=== PATIENT | female | born 1940 | race Two or more races ===

== ENCOUNTER 2025-05-14 18:55 | Emergency (ER) | payer OTHER ==
[~2025-05-14] VITALS: Ht 170.2 cm; Wt 50.0 kg
--- NOTE | 2025-05-14 19:45 | ED.PDOC ---
History of Present Illness HPI Comments 85 y/o F is BIBA from [facility] for c/c of bilateral lower leg pain, redness, and swelling. Symptoms are commented to extend from the her feet to her knees. Pain is a 2/10 in severity. No reported modifiers. Significant history of CKF, COPD, DM II, and HTN. No endorsed recent ailments, injuries, or further pertinent events or history. Denial of any chest pain, shortness of breath, fever, chills, numbness, tingling, wound discharge, or further associated symptoms. Chief Complaint: Lower Extremity Time Seen by MD: 19:10 Reviewed Notes: Nurses Notes, Psychometric Examiner Notes, Medications, Allergies Allergies: Coded Allergies: Aspirin (Verified Allergy, Unknown, 05/14/25) Penicillins (Verified Allergy, Unknown, 05/14/25) Information Source: Patient, Emergency Med Personnel Mode of Arrival: EMS Severity: Moderate Timing: Hours Duration: Since onset Prehospital treatment: 12 Lead EKG, Accucheck, Commercial Green Building Architect Past Medical History PAST MEDICAL HISTORY: CKF, COPD, DM, HTN Surgical History: Hysterectomy SURVEY DATA TECHNICIAN History: Denies all SURVEY DATA TECHNICIAN Hx Family History Family History: Unknown Social History Smoker: Non-Smoker Alcohol: Denies ETOH Use Drugs: Denies Drug Use Lives In: Assisted Care, Long Term All Other Systems: Reviewed and Negative (Comprehensive systems review obtained and negative except for what is stated in the HPI.) Physical Exam General Appearance: Moderate Distress HEENT: Normal ENT Inspection, Pharynx Normal, TMs Normal Neck: Full Range of Motion, Non-Tender, Normal, Normal Inspection Respiratory: Chest Non-Tender, Lungs Clear, No Accessory Muscle Use, No Respiratory Distress, Normal Breath Sounds Cardiovascular: No Edema, No JVD, No Murmur, No Gallop, Normal Peripheral Pulses, Regular Rate/Rhythm Breast Exam: Deferred Gastrointestinal: No Organomegaly, Non Tender, No Pulsatile Mass, Normal Bowel Sounds, Soft Genitalia: Deferred Pelvic: Deferred Rectal: Deferred Extremities: No calf tenderness, Normal capillary refill, Normal inspection, Normal range of motion, Non-tender, No pedal edema Musculoskeletal : Apperance: Normal Neurologic: Alert, brick washer II-XII nml as Tested, No Motor Deficits, Normal Affect, Normal Mood, No Sensory Deficits Cerebellar Function: Normal Reflexes: Normal Skin: Dry, Normal Color, Warm Peripheral Pulses: 3+ Radial (R), 3+ Radial (L) Lymphatic: No Adenopathy Was a procedure done? Was a procedure done?: No Differential Dx Considerations may include: DVT, cellulitis, neurovascular injury, viral syndrome, fluid retention, among others X-Ray, Labs, Meds, VS Vital Signs Date Time Temp Pulse Resp B/P (MAP) Pulse Ox O2 Delivery O2 Flow Rate FiO2 05/15/25 02:00 78 16 116/32 (60) 95 05/15/25 00:00 76 15 101/42 (61) 93 05/14/25 22:00 73 16 108/30 (56) 99 05/14/25 19:30 Nasal Cannula* 2 28 05/14/25 19:30 98.1 94 18 129/45 (73) 98 98.1 05/14/25 19:20 98.0 90 18 110/90 94 98.0 [place] [id number] Ph: [phone] DIAGNOSTIC IMAGING Diagnostic Imaging Report : [id number] Signed PATIENT: NAKUL ENGEL ACCT: [id number] UNIT: [id number] : 1940 LOC: ER ROOM / BED: / AGE / SEX: 85 / F ADM STATUS: REG ER SERVICE 13 ORDERING PHYSICIAN: HARRY BERKOWITZ MD PROCEDURE(s): BLDVT - BiLat Lower DVT REASON: dvt ORDER NUMBER(s): [id number], ACCESSION NUMBER(s): [id number] Procedure: US BiLat Lower DVT Study Date and Requested Time: 05/14/2025 07:56 PM History: dvt Comparison: None Technique: Multiple high resolution patel-scale images with and without compression obtained of the bilateral lower extremity veins, including the com mon femoral vein, deep femoral vein, proximal mid and distal superficial femoral vein, and popliteal vein. Additional limited images of the greater saphenous vein also obtained. Augmentation performed as indicated. Color and spectral doppler flow images obtained as indicated. Findings: No visible intraluminal venous thrombus. No evidence of incompressibility or abnormal color or spectral Doppler flow visualized in the bilateral lower extremity veins including, the common femoral vein, deep femoral vein, proximal mid and distal superficial femoral vein, and popliteal vein. Greater saphenous vein grossly unremarkable. Soft tissue edema of bilateral popliteal regions. Impression: No sonographic evidence of bilateral lower extremity deep venous thrombosis. ATED BY: RUBY BAL DO DICTATED DATE/TIME: 05/14/252023 SIGNED BY: RUBY BAL DO SIGNED DATE/TIME: 05/14/252023 CC: Patient alert. Came in because of bilateral lower extremity swelling. Vitals stable. Answering questions. No acute process. DVT study reviewed within normal limits. Explained to the patient. Was told to follow up with her primary care physician. Was told to come back if there is any problem. Time of 1ST Reevaluation: 19:40 Reevaluation 1ST: Unchanged Patient Education/Counseling: Diagnosis, Treatment, Other (need for admission ) Family Education/Counseling: No Family Present SEPSIS Sepsis Screen Physician Orders Bilat Lower Dvt (05/14/25 19:14) Vital Signs Date Time Temp Pulse Resp B/P (MAP) Pulse Ox O2 Delivery O2 Flow Rate FiO2 05/15/25 02:00 78 16 116/32 (60) 95 05/15/25 00:00 76 15 101/42 (61) 93 05/14/25 22:00 73 16 108/30 (56) 99 05/14/25 19:30 Nasal Cannula* 2 28 05/14/25 19:30 98.1 94 18 129/45 (73) 98 98.1 05/14/25 19:20 98.0 90 18 110/90 94 98.0 Departure 1 Departure Time of Disposition: 20:24 Impression: Primary Impression: CHF (congestive heart failure) Qualified Codes: I50.43 - Acute on chronic combined systolic (congestive) and diastolic (congestive) heart failure Disposition: 01 HOME / SELF CARE / HOMELESS Condition: Good Discharged With: Self Critical Care Note Critical Care Time?: No Stability Stability form required: No Heart Score Heart Score: Heart Score Response (Comments) Value History N/A 0 EKG N/A 0 Age N/A 0 Risk Factors N/A 0 Troponin N/A 0 Total 0 I personally scribed for HARRY BERKOWITZ MD ([email or web address]) on 05/14/25 at 19:45. Electronically submitted by Leland Grajeda ([email or web address]). I personally scribed for HARRY BERKOWITZ MD ([email or web address]) on 05/14/25 at 22:54. Electronically submitted by Leland Grajeda ([email or web address]). I personally scribed for HARRY BERKOWITZ MD ([email or web address]) on 05/15/25 at 02:13. Electronically submitted by Leland Grajeda ([email or web address]). HARRY BERKOWITZ MD May 14, 2025 19:45
--- NOTE | 2025-05-14 20:27 | DVH ---
Procedure: US BiLat Lower DVT Study Date and Requested Time: 05/14/2025 07:56 PM History: dvt Comparison: None Technique: Multiple high resolution patel-scale images with and without compression obtained of the bi lateral lower extremity veins, including the common femoral vein, deep femoral vein, proximal mid and distal superficial femoral vein, and popliteal vein. Additional limited images of the greater saphen ous vein also obtained. Augmentation performed as indicated. Color and spectral doppler flow images o btained as indicated. Findings: No visible intraluminal venous thrombus. No evidence of incompressibility or abnormal color or spectr al Doppler flow visualized in the bilateral lower extremity veins including, the common femoral vein, deep femoral vein, proximal mid and distal superficial femoral vein, and popliteal vein. Greater sap henous vein grossly unremarkable. Soft tissue edema of bilateral popliteal regions. Impression: No sonographic evidence of bilateral lower extremity deep venous thrombosis.
[2025-05-15] MEDS: ACETAMINOPHEN 325 MG TAB PO ONE (04:24)
[2025-05-15 07:12] VITALS: BP 137/58; PULSE 75; RESP 17; TEMP 97.8; O2SAT 95
== END 2025-05-15 12:47 | disposition home or self-care (01) ==
LOC: EDBD 18:55 → ER 18:55
DX: I11.0 Hypertensive heart disease with heart failure (principal); I50.43 Acute on chronic combined systolic (congestive) and diastolic (congestive) heart failure; E11.9 Type 2 diabetes mellitus without complications; J44.9 Chronic obstructive pulmonary disease, unspecified; Z90.710 Acquired absence of both cervix and uterus; Z88.6 Allergy status to analgesic agent; Z86.718 Personal history of other venous thrombosis and embolism; Z88.0 Allergy status to penicillin
CPT/HCPCS: 82947; 82962; 93970

== ENCOUNTER 2025-07-02 11:29 | Inpatient (IN) | payer OTHER ==
[~2025-07-02] VITALS: Ht 152.4 cm; Wt 70.2 kg
[2025-07-02] MEDS: D5W 5% 1,000 ML IV SCH
[2025-07-02 12:30] VITALS: PULSE 78; RESP 15; O2SAT 96
--- NOTE | 2025-07-02 12:39 | ED.PDOC ---
GI ASSESSMENT HPI Comments 85 y.o female with PMHx of liver cirrhosis, presents to the ED via EMS for a chief complaint of abdominal distention and upper abdominal pain that started x 1-2 weeks ago. EMS reports patient is coming from [facility], states he transferred patient to [facility], [place] yesterday due to ascities and was suppose to get a paracentesis done, however hospital just discharged her. Patient's PCP wanted patient to be transferred to this facility to undergo the procedure. She denies any nausea, vomiting, diarrhea, fever, chills. Chief Complaint: Abdominal Pain Time Seen by MD: 11:55 Reviewed Notes: Nurses Notes, Timber Skidder Notes, Medications, Allergies Allergies: Coded Allergies: Aspirin (Verified Allergy, Unknown, 05/14/25) Penicillins (Verified Allergy, Unknown, 05/14/25) Information Source: Patient, Emergency Med Personnel Mode of Arrival: EMS Timing: Weeks Duration: Since onset Quality: Aching Vomitus: None Stool: Normal Severity: Moderate Recent: None Recent Hx of: None Pain Location: Epigastric Modifying Factors: Nothing Associated sign and symptoms: Abdominal Pain Past Medical History PAST MEDICAL HISTORY: CKF, COPD, DM, HTN, Liver Surgical History: Hysterectomy 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 MASTER 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 History: Denies all CERTIFIED MASTER 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 Hx Family History Family History: Unknown Social History Smoker: Non-Smoker Alcohol: Denies ETOH Use Drugs: Denies Drug Use Lives In: Assisted Care, Intermediate Constitutional: denies: chills, diaphoresis, fatigue, fever, malaise, sweats, weakness, others EENTM: denies: blurred vision, double vision, ear bleeding, ear discharge, ear drainage, ear pain, ear ringing, eye pain, eye redness, hearing loss, mouth pain, mouth swelling, nasal discharge, nose bleeding, nose congestion, nose pain, photophobia, tearing, throat pain, throat swelling, voice changes, others Respiratory: denies: cough, hemoptysis, orthopnea, SOB at rest, shortness of breath, SOB with excertion, stridor, wheezing, others Cardiovascular: denies: chest pain, dizzy spells, diaphoresis, Dyspnea on exertion, edema, irregular heart beat, left arm pain, lightheadedness, palpitations, PND, syncope, others Gastrointestinal: reports: abdomen distended, abdominal pain; denies: blood streaked bowels, constipated, diarrhea, dysphagia, difficulty swallowing, hematemesis, melena, nausea, poor appetite, poor fluid intake, rectal bleeding, rectal pain, vomiting, others Genitourinary: denies: abnormal vagina bleeding, burning, dyspareunia, dysuria, flank pain, frequency, hematuria, incontinence, pain, , vagina dis charge, urgency, others Neurological: denies: dizziness, fainting, headache, left sided numbness, left sided weakness, numbness, paresthesia, pre-existing deficit, right sided numbness, right sided weakness, seizure, speech problems, tingling, tremors, weakness, others Musculoskeletal: denies: back pain, gout, joint pain, joint swelling, muscle pain, muscle stiffness, neck pain, others Integumetry: denies: bruises, change in color, change in hair/nails, dryness, laceration, lesions, lumps, rash, wounds, others Endocrine: denies: excessive hunger, excessive sweating, excessive thirst, excessive urination, flushing, intolerance to cold, intolerance to heat, unexplained weight gain, unexplained weight loss, others Psychiatric: denies: anxiety, bipolar disorder, depression, hopeless, panic disorder, schizophrenia, sleepless, suicidal, others All Other Systems: Reviewed and Negative Physical Exam General Appearance: No Apparent Distress, Normal HEENT: Normal ENT Inspection, Pharynx Normal, TMs Normal Neck: Full Range of Motion, Non-Tender, Normal, Normal Inspection Respiratory: Chest Non-Tender, Lungs Clear, No Accessory Muscle Use, No Respiratory Distress, Normal Breath Sounds Cardiovascular: No Edema, No JVD, No Murmur, No Gallop, Normal Peripheral Pulses, Regular Rate/Rhythm Breast Exam: Deferred Gastrointestinal: Diffuse, Distended, No Organomegaly, Non Tender, No Pulsatile Mass Genitalia: Deferred Pelvic: Deferred Rectal: Deferred Extremities: No calf tenderness, Normal capillary refill, Normal inspection, No rmal range of motion, Non-tender, No pedal edema Musculoskeletal : Apperance: Normal Neurologic: Alert, jira administrator II-XII nml as Tested, No Motor Deficits, Normal Affect, Normal Mood, No Sensory Deficits Cerebellar Function: Normal Reflexes: Normal Skin: Dry, Normal Color, Warm Lymphatic: No Adenopathy Was a procedure done? Was a procedure done?: No GI differential Dx Differential Diagnosis: Bowel Obstruction, Inflammatory BD, Pancreatitis X-Ray, Labs, Meds, VS Vital Signs Date Time Temp Pulse Resp B/P (MAP) Pulse Ox O2 Delivery O2 Flow Rate FiO2 07/02/25 18:15 60 9 103/67 (79) 97 07/02/25 18:00 73 12 114/50 (71) 98 07/02/25 18:00 114/50 07/02/25 17:45 55 10 120/43 (68) 98 07/02/25 17:30 60 10 115/45 (68) 96 07/02/25 17:20 132/52 07/02/25 17:15 60 10 116/41 (66) 96 07/02/25 17:14 125/50 07/02/25 17:09 125/50 07/02/25 16:50 61 10 121/43 (69) 97 07/02/25 16:23 106/38 07/02/25 16:15 66 9 106/38 (60) 97 07/02/25 16:00 98.0 66 9 101/35 (57) 97 98.0 07/02/25 15:40 71 10 115/45 (68) 96 07/02/25 14:30 64 12 90/33 (52) 99 07/02/25 14:18 68 12 96/34 07/02/25 12:47 78 18 121/48 07/02/25 12:30 78 15 96 Nasal Cannula* 2 28 07/02/25 12:30 98.7 78 30 121/48 (72) 97 98.7 07/02/25 11:31 98.7 78 19 108/58 97 98.7 Lab Test 07/02/25 16:55 07/02/25 16:32 07/02/25 13:04 Range/Units Lactic Acid Level 1.4 0.4-2.0 mmol/L Urine Color Yellow Yellow Urine Clarity Clear Clear Urine pH 5.5 5.0-9.0 Urine Specific Ponce 1.019 1.001-1.035 Urine Protein Trace H Negative Urine Ketones Negative Negative Urine Blood Negative Negative /uL Urine Nitrite Negative Negative Urine Bilirubin Negative Negative Urine Urobilinogen Normal Negative mg/dL Urine Leukocyte Esterase 3+ Negative /uL Urine RBC 4 0 - 4 /hpf Urine Microscopic WBC 51 H 0-5 /HPF Urine Squamous Epithelial Cells Few <5 /hpf Urine Bacteria None seen None Seen /hpf Urine Glucose Normal Normal mg/dL White Blood Count 7.3 4.4-10.8 10^3/uL Red Blood Count 3.96 L 4.0-5.20 10^6/uL Hemoglobin 11.4 L 12.2-16.2 g/dL Hematocrit 34.9 L 36.0-46.0 % Mean Corpuscular Volume 88.1 80.0-100.0 fL Mean Corpuscular Hemoglobin 28.8 28.0-32.0 pg Mean Corpuscular Hemoglobin Concent 32.7 32.0-36.0 g/dL Red Cell Distribution Width 19.5 H 11.8-14.3 % Platelet Count 138 L 140-450 10^3/uL Mean Platelet Volume 8.5 6.9-10.8 fL Neutrophils (%) (Auto) 71.6 37.0-80.0 % Lymphocytes (%) (Auto) 12.8 10.0-50.0 % Monocytes (%) (Auto) 11.3 0.0-12.0 % Eosinophils (%) (Auto) 3.9 0.0-7.0 % Basophils (%) (Auto) 0.4 0.0-2.0 % Neutrophils # (Auto) 5.2 1.6-8.6 10 ^3/uL Lymphocytes # (Auto) 0.9 0.4-5.4 10 ^3/uL Monocytes # (Auto) 0.8 0-1.3 10 ^3/uL Eosinophils # (Auto) 0.3 0-0.8 10 ^3/uL Basophils # (Auto) 0 0-0.2 10 ^3/uL Nucleated Red Blood Cells 0.1 % Sodium Level 145 136-145 mmol/L Potassium Level 4.2 3.5-5.1 mmol/L Chloride Level 112 H 98-107 mmol/L Carbon Dioxide Level 24 20-31 mmol/L Anion Gap 9 5-15 Blood Urea Nitrogen 22 9-23 mg/dL Creatinine 1.09 H 0.550-1.02 mg/dL Glomerular Filtration Rate Calc 50 >90 mL/min BUN/Creatinine Ratio 20.2 H 10.0-20.0 Serum Glucose 93 74-106 mg/dL Calcium Level 7.8 L 8.7-10.4 mg/dL Total Bilirubin 1.1 H 0.2-1.0 mg/dL Aspartate Amino Transferase (AST) 56 H 13-40 U/L Alanine Aminotransferase (ALT) 32 7-40 U/L Alkaline Phosphatase 348 H 46-116 U/L Total Protein 6.0 5.7-8.2 g/dL Albumin 3.0 L 3.2-4.8 g/dL Lipase 40 12-53 U/L Current Medications Medications (Trade) Dose Ordered Sig/Janusz Route Start Time Stop Time Status Last Admin Morphine Sulfate 4 mg ONCE ONCE IV 07/02/25 12:15 07/02/25 12:16 DC 07/02/25 12:47 Ondansetron HCl (Zofran) 4 mg ONCE ONCE IV 07/02/25 12:15 07/02/25 12:16 DC 07/02/25 12:47 Sodium Chloride 1,000 ml @ 1,000 mls/hr Q1H ONCE IV 07/02/25 14:15 07/02/25 15:03 DC 07/02/25 14:18 Sodium Chloride 1,000 ml @ 150 mls/hr Q6H40M IV 07/02/25 16:15 07/02/25 16:24 Norepinephrine Bitartrate 250 ml @ 3.75 mls/hr Q24H IV 07/02/25 16:15 07/02/25 18:41 DC 07/02/25 16:23 Vancomycin HCl 250 ml @ 250 mls/hr ONCE ONCE IV 07/02/25 16:15 07/02/25 17:14 DC 07/02/25 17:42 Ceftriaxone Sodium 50 ml @ 100 mls/hr ONCE ONCE IV 07/02/25 16:15 07/02/25 16:44 DC 07/02/25 17:26 Sodium Chloride 500 ml @ 500 mls/hr Q1H ONCE IV 07/02/25 18:45 07/02/25 19:44 07/02/25 19:05 Time of 1ST Reevaluation: 12:39 Reevaluation 1ST: Unchanged Patient Education/Counseling: Diagnosis, Treatment, Prognosis Family Education/Counseling: No Family Present SEPSIS Sepsis Screen Date sepsis recognized/suspect: Jul 02, 2025 Time Sepsis recognized/suspect: 1121 Recent Procedure: No On Antibiotic Therapy: No Respiratory Rate >20: No Heart Rate >90: No Temp<36 C (96.8 F) or >38.3 C: No SBP <90 or MAP <65 mmHG: No New Acute Mental Status Change: No Is the patient on CPAP, BIPAP,: No Physician Orders Ct Ab Pel With Iv Con Only (07/02/25 12:05) Sodium Chloride 0.9% (07/02/25 16:15) Communication Order (07/02/25 16:07) Blood Culture (07/02/25 16:14) Insert/Manage Urinary Catheter QSHIFT (07/02/25 16:27) Urine Bacterial Culture (07/02/25 16:38) Sodium Chloride 0.9% (07/02/25 18:45) Norepinephrine 8 Mg/250ml Kit (Levophed) (07/02/25 19:15) Vital Signs Date Time Temp Pulse Resp B/P (MAP) Pulse Ox O2 Delivery O2 Flow Rate FiO2 07/02/25 18:15 60 9 103/67 (79) 97 07/02/25 18:00 73 12 114/50 (71) 98 07/02/25 18:00 114/50 07/02/25 17:45 55 10 120/43 (68) 98 07/02/25 17:30 60 10 115/45 (68) 96 07/02/25 17:20 132/52 07/02/25 17:15 60 10 116/41 (66) 96 07/02/25 17:14 125/50 07/02/25 17:09 125/50 07/02/25 16:50 61 10 121/43 (69) 97 07/02/25 16:23 106/38 07/02/25 16:15 66 9 106/38 (60) 97 07/02/25 16:00 98.0 66 9 101/35 (57) 97 98.0 07/02/25 15:40 71 10 115/45 (68) 96 07/02/25 14:30 64 12 90/33 (52) 99 07/02/25 14:18 68 12 96/34 07/02/25 12:47 78 18 121/48 07/02/25 12:30 78 15 96 Nasal Cannula* 2 28 07/02/25 12:30 98.7 78 30 121/48 (72) 97 98.7 07/02/25 11:31 98.7 78 19 108/58 97 98.7 Laboratory Tests Test 07/02/25 13:04 11/22/25 16:55 White Blood Count 7.3 10^3/uL (4.4-10.8) Lactic Acid Level 1.4 mmol/L (0.4-2.0) Medications Medications Dose Ordered Sig/Janusz Route Start Time Stop Time Status Last Admin Dose Admin Ceftriaxone Sodium 50 ml @ 100 mls/hr ONCE ONCE IV 07/02/25 16:15 07/02/25 16:44 DC 07/02/25 17:26 Morphine Sulfate 4 mg ONCE ONCE IV 07/02/25 12:15 07/02/25 12:16 DC 07/02/25 12:47 Norepinephrine Bitartrate 250 ml @ 3.75 mls/hr Q24H IV 07/02/25 16:15 07/02/25 18:41 DC 07/02/25 16:23 Ondansetron HCl 4 mg ONCE ONCE IV 07/02/25 12:15 07/02/25 12:16 DC 07/02/25 12:47 Sodium Chloride 500 ml @ 500 mls/hr Q1H ONCE IV 07/02/25 18:45 07/02/25 19:44 07/02/25 19:05 Sodium Chloride 1,000 ml @ 150 mls/hr Q6H40M IV 07/02/25 16:15 07/02/25 16:24 Sodium Chloride 1,000 ml @ 1,000 mls/hr Q1H ONCE IV 07/02/25 14:15 07/02/25 15:03 DC 07/02/25 14:18 Vancomycin HCl 250 ml @ 250 mls/hr ONCE ONCE IV 07/02/25 16:15 07/02/25 17:14 DC 07/02/25 17:42 Departure 1 Departure Time of Disposition: 19:30 (Patient with concern for sepsis. We will not give patient the full fluid bolus as patient is clinically well here volume overloaded.Patient requiring pressors.Patient presented with abdominal pain that was concerning for possible appendicits, gastritis, cholecystitis, colitis, gastroenteritis, sbo, or orther possible surgical emergency. Data: 1. I ordered and reviewed the result of at least 3 labs including a CBC, BMP, and Urinalysis. 2. I independently interpreted the following tests: CT Abdomen and Pelvis is concerning for worsening ascites likely worsening liver cancer .Risk:This patient has a high risk of morbidity due to further diagnostic testing or treatment and may suffer from an acute abdominal process disorder. Workup reveals intractable abdominal pain and concern for sepsis with a worsening liver problems and patient should be admitted for further workup. and possible expert consultation. ) Impression: Primary Impression: Sepsis Additional Impressions: Intractable abdominal pain Liver failure Disposition: ADMITTED INPATIENT Admit to: ICU Condition: Critical Critical Care Note Critical Care Time?: Yes Critical care comment: Intractable abdominal pain and sepsis requiring pressors Authorized and Performed by: Barbara Turk MD Total critical care time: Approximately 128 minutes Due to a high probability of clinically significant, life threatening deterioration, the patient required my highest level of preparedness to intervene emergently and I personally spent this critical care time directly and personally managing the patient. This critical care time included obtaining a history; examining the patient; pulse oximetry; ordering and review of studies; arranging urgent treatment with development of a management plan; evaluation of patient's response to treatment; frequent reassessment; and, discussions with other providers. This critical care time was performed to assess and manage the high probability of imminent, life-threatening deterioration that could result in multi-organ failure. It was exclusive of separately billable procedures and treating other patients and teaching time. Please see my other sections and the rest of the note for further information on patient assessment and treatment. Stability Stability form required: No I personally scribed for BARBARA TURK MD ([email or web address]) on 07/02/25 at 12:39. Electronically submitted by Tarsha Joaquin ([facility]). BARBARA TURK MD Jul 02, 2025 12:39
[2025-07-02] MEDS: MORPHINE SULFATE 4 MG/ML SYR/VIAL ONE (12:43)
[2025-07-02] MEDS: ONDANSETRON HCL 4 MG/2 ML VIAL ONE (12:44)
[2025-07-02] MEDS: MORPHINE SULFATE 4 MG/ML SYR/VIAL IV ONE (12:47)
[2025-07-02] MEDS: ONDANSETRON HCL 4 MG/2 ML VIAL IV ONE (12:47)
[2025-07-02 13:21] LABS: Hematocrit 34.9 % (36.0-46.0); Hemoglobin 11.4 g/dL (12.2-16.2); Mean Corpuscular Hemoglobin 28.8 pg (28.0-32.0); Mean Corpuscular Volume 88.1 fL (80.0-100.0); Nucleated Red Blood Cells % 0.1 %
[2025-07-02 13:45] LABS: Alanine Aminotransferase 32 U/L (7-40); BUN/Creatinine Ratio 20.2 (10.0-20.0); Bilirubin, Total 1.1 mg/dL (0.2-1.0); Blood Urea Nitrogen 22 mg/dL (9-23); Carbon Dioxide 24 mmol/L (20-31); Glucose 93 mg/dL (74-106); Lipase 40 U/L (12-53); Total Protein 6.0 g/dL (5.7-8.2)
[2025-07-02] MEDS: SODIUM CHLORIDE 0.9% 1,000 ML IV ONE ×2 (14:18→15:15)
[2025-07-02 14:37] LABS: Potassium 4.2 mmol/L (3.5-5.1); Sodium 145 mmol/L (136-145)
[2025-07-02 14:41] LABS: Albumin 3.0 g/dL (3.2-4.8); Alkaline Phosphatase 348 U/L (46-116); Calcium 7.8 mg/dL (8.7-10.4)
[2025-07-02 14:42] LABS: Anion Gap 9 (5-15); Chloride 112 mmol/L (98-107)
[2025-07-02] MEDS: IOHEXOL 300 MG/ML 100ML BOTTLE IJ ONE (14:54)
--- NOTE | 2025-07-02 16:04 | DVH ---
EXAM: CT CT AB PEL WITH IV CON ONLY HISTORY: abdominal pain TECHNIQUE: Volumetric multidetector CT images of the abdomen and pelvis were obtained after the administration of intravenous contrast. All CT scans at this facility use dose modulation, iterative reconstruction, and/or weight based dosing when appropriate to reduce radiation dose to as low as reasonably achievable. COMPARISON: None FINDINGS: [LOWER CHEST]: Small right and trace left pleural effusions. Atelectasis in bilateral lung bases. Coronary artery calcifications. [LIVER]: Significant cirrhotic morphology of the liver with small caliber and nodular contour. Oval-shaped lesion in the right hepatic lobe with homogeneous enhancement measuring 8-9 mm. Imaging finding is indeterminate. Consider further evaluation with MRI of the liver with and without contrast correlation with tumor markers [GALLBLADDER AND BILIARY TREE]: No cholelithiasis. [SPLEEN]: Splenomegaly. [PANCREAS]: Unremarkable. [ADRENAL GLANDS]: Unremarkable [KIDNEYS]: Mild right hydronephrosis and moderate right pelviectasis. Moderate right hydroureter. No left hydronephrosis. Benign left inferior kidney cysts . Bilateral renal cortical thinning [BLADDER]: Unremarkable for the degree distention. [REPRODUCTIVE ORGANS]: Unremarkable. [BOWEL/MESENTERY]: Stomach is decompressed. Prominent stool burden within the high to low rectum. [ASCITES]: Medium volume ascites [LYMPHADENOPATHY]: No pathologically enlarged lymph nodes by CT size criteria [VASCULATURE]: No aneurysmal dilatation. [ABDOMINAL WALL]: [id number] anasarca [MUSCULOSKELETAL]: No acute fracture or aggressive focal osseous lesion. IMPRESSION: 1. Cirrhotic morphology of the liver with medium volume ascites. 2. Splenomegaly. 3. Indeterminate oval-shaped lesion in the right hepatic lobe with homogeneous enhancement measuring 8-9 mm. Imaging finding is indeterminate. Consider further evaluation with MRI of the liver with and without contrast correlation with tumor markers. 4. Mild right hydronephrosis and moderate right pelviectasis. 5. Moderate right hydroureter. 6. Small right and trace left pleural effusions.
[2025-07-02] MEDS: NOREPINEPHRINE 8 MG/250ML KIT 250 ML IV ONE (16:16)
[2025-07-02] MEDS: NOREPINEPHRINE 8 MG/250ML KIT 250 ML IV SCH ×2 (16:23→21:55)
[2025-07-02] MEDS: SODIUM CHLORIDE 0.9% 1,000 ML IV SCH ×2 (16:24→20:33)
[2025-07-02] MEDS: VANCOMYCIN 1GM/250ML KIT 250 ML IV ONE ×3 (16:49→17:42)
[2025-07-02 17:19] LABS: Urine Protein, UAD TRACE (Negative)
[2025-07-02 19:00] VITALS: PULSE 64; RESP 10; O2SAT 96
[2025-07-02] MEDS: SODIUM CHLORIDE 0.9% 500 ML IV ONE (19:05)
[2025-07-02] MEDS ORDERED: ONDANSETRON HCL 4 MG/2 ML VIAL IV PRN (20:00)
[2025-07-02] MEDS ORDERED: DOCUSATE SOD 100 MG CAP PO PRN (20:00)
[2025-07-02] MEDS ORDERED: MORPHINE SULFATE INJ 2 MG/ml SYRG IV PRN (20:00)
[2025-07-02] MEDS ORDERED: IBUPROFEN 400 MG TAB PO PRN (20:00)
[2025-07-02] MEDS ORDERED: VANCOMYCIN PER PHARMACY 0 MG IV SCH (20:00)
[2025-07-02] MEDS ORDERED: DEXTROSE (50%) 50ML SYRG IV PRN (20:00)
[2025-07-02] MEDS ORDERED: NITROGLYCERIN 0.4 MG SL TAB SL PRN (20:00)
--- NOTE | 2025-07-02 20:06 | DVHHP2 ---
History of Present Illness Reason for Visit: Hypotension History of Present Illness The patient is a 85-year-old female DNR with past medical history of chronic kidney failure, COPD, diabetes mellitus, liver disease, and hypertension who presented to [facility] ED with complaint of abdominal pain for the past 1-2 weeks. As reported by EMS, patient is residing [facility], was admitted at [facility] yesterday due to ascites and was supposed to get paracentesis done, however hospital just discharged her. Patient's primary care physician wanted patient to be transferred to this facility to undergo the procedure. Patient was seen and evaluated in the ED, laboratory data shows WBC 7.3, hemoglobin 11.4, hematocrit 34.9, platelets 138, sodium 145, potassium 4.2, BUN 22, creatinine 1.09, GFR 50, glucose 93, calcium 7.8, albumin 3.0, AST 56, ALT 32, alkaline phos 348, lactic acid 1.4, total bilirubin 1.1, blood pressure 102/47, heart rate 64, temperature 98.3 F, O2 saturation 95% on oxygen. Abdomen/pelvis CT revealing cirrhotic morphology of th e liver with medium volume ascites; splenomegaly; mild right hydronephrosis and moderate right pelviectasis; moderate right hydroureter. Please see medication orders section in the computer. On my assessment, patient denied chest pain, no headache, dizziness, diaphoresis, currently on oxygen, no diarrhea, nausea, vomiting, fever, no chills. Patient was admitted for further evaluation and medical management. Past Medical History CKF, COPD, DM, HTN, Liver disease Past Surgical History Hysterectomy Family History Reviewed, noncontributory to the management of this case. Past Social History [facility], denies smoking, alcohol or illicit drugs abuse. Review of Systems Constitutional: Yes: Weakness; No: Fever, Chills, Sweats, Malaise, Other Eyes: No: Pain, Vision change, Conjunctivae inflammation, Eyelid inflammation, Other, Redness ENT: No: Ear pain, Ear discharge, Nose pain, Nose discharge, Nose congestion, Mouth pain, Mouth swelling, Throat pain, Throat swelling, Other Respiratory: No: Cough, Dry, Shortness of breath, SOB with excertion, Wheezing, Hemoptysis, Pleuritic Pain, Sputum, Wheezing, Other Cardiovascular: Other (Hypotension); No: Chest Pain, Palpitations, Orthopnea, Paroxysmal Noc. Dyspnea, Edema, Lt Headedness Gastrointestinal: Abdominal Pain, Other (Distended abdomen); No: Nausea, Vomiting, Diarrhea, Constipation, Melena, Hematochezia Genitourinary: No Dysuria, No Frequency, No Incontinence, No Hematuria, No Retention, No Other Musculoskeletal: No: other, neck pain, shoulder pain, arm pain, back pain, hand pain, leg pain, foot pain Skin: No: Rash, Lesions, Jaundice, Bruising, Other Neurological: No: Weakness, Numbness, Incoordination, Change in speech, Confusion, Seizures, Other Allergies: Coded Allergies: Aspirin (Verified Allergy, Unknown, 05/14/25) Penicillins (Verified Allergy, Unknown, 05/14/25) Medications Current Medications Medications Dose Ordered Sig/Janusz Route Start Time Stop Time Status Last Admin Dose Admin Sodium Chloride 1,000 ml @ 150 mls/hr Q6H40M IV 07/02/25 16:15 07/02/25 16:24 150 MLS/HR Norepinephrine Bitartrate 250 ml @ 3.75 mls/hr Q24H IV 07/02/25 19:15 Exam Vital Signs Vital Signs Date Time Temp Pulse Resp B/P (MAP) Pulse Ox O2 Delivery O2 Flow Rate FiO2 07/02/25 19:00 64 10 96 Nasal Cannula* 2 28 07/02/25 19:00 98.3 102/47 (65) 98.3 General Appearance: Alert, Oriented X3, Cooperative, No acute distress HEENT: Atraumatic, PERRLA, EOMI, Mucous membr. moist/pink Respiratory: Normal air movement Cardiovascular: Regular rate, Normal S1, Normal S2, No murmurs Abdominal: Normal bowel sounds, Soft, No hepatospenomegaly, No masses, Other (Reports tenderness) Extremities: No clubbing, No cyanosis, No edema, Normal pulses, No tenderness/swelling Skin: No rashes, No significant lesion Neuro: Normal speech, Normal tone, Sensation intact, Cranial nerves 3-12 NL, Reflexes 2+, Other (Generalized weakness) Psych/Mental Status: Mental status NL, Mood NL Labs/Xrays Labs Test 07/02/25 16:55 07/02/25 16:32 07/02/25 13:04 Range/Units Lactic Acid Level 1.4 0.4-2.0 mmol/L Urine Color Yellow Yellow Urine Clarity Clear Clear Urine pH 5.5 5.0-9.0 Urine Specific [place] 1.019 1.001-1.035 Urine Protein Trace H Negative Urine Ketones Negative Negative Urine Blood Negative Negative /uL Urine Nitrite Negative Negative Urine Bilirubin Negative Negative Urine Urobilinogen Normal Negative mg/dL Urine Leukocyte Esterase 3+ Negative /uL Urine RBC 4 0 - 4 /hpf Urine Microscopic WBC 51 H 0-5 /HPF Urine Squamous Epithelial Cells Few <5 /hpf Urine Bacteria None seen None Seen /hpf Urine Glucose Normal Normal mg/dL White Blood Count 7.3 4.4-10.8 10^3/uL Red Blood Count 3.96 L 4.0-5.20 10^6/uL Hemoglobin 11.4 L 12.2-16.2 g/dL Hematocrit 34.9 L 36.0-46.0 % Mean Corpuscular Volume 88.1 80.0-100.0 fL Mean Corpuscular Hemoglobin 28.8 28.0-32.0 pg Mean Corpuscular Hemoglobin Concent 32.7 32.0-36.0 g/dL Red Cell Distribution Width 19.5 H 11.8-14.3 % Platelet Count 138 L 140-450 10^3/uL Mean Platelet Volume 8.5 6.9-10.8 fL Neutrophils (%) (Auto) 71.6 37.0-80.0 % Lymphocytes (%) (Auto) 12.8 10.0-50.0 % Monocytes (%) (Auto) 11.3 0.0-12.0 % Eosinophils (%) (Auto) 3.9 0.0-7.0 % Basophils (%) (Auto) 0.4 0.0-2.0 % Neutrophils # (Auto) 5.2 1.6-8.6 10 ^3/uL Lymphocytes # (Auto) 0.9 0.4-5.4 10 ^3/uL Monocytes # (Auto) 0.8 0-1.3 10 ^3/uL Eosinophils # (Auto) 0.3 0-0.8 10 ^3/uL Basophils # (Auto) 0 0-0.2 10 ^3/uL Nucleated Red Blood Cells 0.1 % Sodium Level 145 136-145 mmol/L Potassium Level 4.2 3.5-5.1 mmol/L Chloride Level 112 H 98-107 mmol/L Carbon Dioxide Level 24 20-31 mmol/L Anion Gap 9 5-15 Blood Urea Nitrogen 22 9-23 mg/dL Creatinine 1.09 H 0.550-1.02 mg/dL Glomerular Filtration Rate Calc 50 >90 mL/min BUN/Creatinine Ratio 20.2 H 10.0-20.0 Serum Glucose 93 74-106 mg/dL Calcium Level 7.8 L 8.7-10.4 mg/dL Total Bilirubin 1.1 H 0.2-1.0 mg/dL Aspartate Amino Transferase (AST) 56 H 13-40 U/L Alanine Aminotransferase (ALT) 32 7-40 U/L Alkaline Phosphatase 348 H 46-116 U/L Total Protein 6.0 5.7-8.2 g/dL Albumin 3.0 L 3.2-4.8 g/dL Lipase 40 12-53 U/L PATIENT: NAKUL ENGEL ACCT: [id number] UNIT: [id number] : 1940 LOC: ER ROOM / BED: / AGE / SEX: 85 / F ADM STATUS: REG ER SERVICE 1205 ORDERING PHYSICIAN: BARBARA TURCIOS MD PROCEDURE(s): ABPLIV - CT AB PEL WITH IV CON ONLY REASON: abdominal pain ORDER NUMBER(s): [id number], ACCESSION NUMBER(s): [id number] EXAM: CT CT AB PEL WITH IV CON ONLY HISTORY: abdominal pain TECHNIQUE: Volumetric multidetector CT images of the abdomen and pelvis were obtained after the administration of intravenous contrast. All CT scans at this facility use dose modulation, iterative reconstruction, and/or weight based dosing when appropriate to reduce radiation dose to as low as reasonably achievable. COMPARISON: None FINDINGS: [LOWER CHEST]: Small right and trace left pleural effusions. Atelectasis in bilateral lung bases. Coronary artery calcifications. [LIVER]: Significant cirrhotic morphology of the liver with small caliber and nodular contour. Oval-shaped lesion in the right hepatic lobe with homogeneous enhancement measuring 8-9 mm. Imaging finding is indeterminate. Consider further evaluation with MRI of the liver with and without contrast correlation with tumor markers [GALLBLADDER AND BILIARY TREE]: No cholelithiasis. [SPLEEN]: Splenomegaly. [PANCREAS]: Unremarkable. [ADRENAL GLANDS]: Unremarkable [KIDNEYS]: Mild right hydronephrosis and moderate right pelviectasis. Moderate right hydroureter. No left hydronephrosis. Benign left inferior kidney cysts. Bilateral renal cortical thinning [BLADDER]: Unremarkable for the degree distention. [REPRODUCTIVE ORGANS]: Unremarkable. [BOWEL/MESENTERY]: Stomach is decompressed. Prominent stool burden within the high to low rectum. [ASCITES]: Medium volume ascites [LYMPHADENOPATHY]: No pathologically enlarged lymph nodes by CT size criteria [VASCULATURE]: No aneurysmal dilatation. [ABDOMINAL WALL]: [id number] anasarca [MUSCULOSKELETAL]: No acute fracture or aggressive focal osseous lesion. IMPRESSION: 1. Cirrhotic morphology of the liver with medium volume ascites. 2. Splenomegaly. 3. Indeterminate oval-shaped lesion in the right hepatic lobe with homogeneous enhancement measuring 8-9 mm. Imaging finding is indeterminate. Consider further evaluation with MRI of the liver with and without contrast correlation with tumor markers. 4. Mild right hydronephrosis and moderate right pelviectasis. 5. Moderate right hydroureter. 6. Small right and trace left pleural effusions. ORDERING PHYSICIAN: TROY HUMMEL DNP PROCEDURE(s): ABDL - ABDOMEN LIMITED REASON: FLUID CHECK FOR POSSIBLE PARA ORDER NUMBER(s): [id number], ACCESSION NUMBER(s): [id number] EXAM: US ABDOMEN LIMITED INDICATION: FLUID CHECK FOR POSSIBLE PARA TECHNIQUE: Grayscale and color Doppler sonographic imaging evaluation of the region of concern. COMPARISON: None FINDINGS: Fluid seen dental 4 quadrants, [id number]-left. Incidental finding of trace fluid seen in bilateral chest compatible pleural effusions. Overall medium volume ascites. IMPRESSION: 1. Ascites. SEPSIS Sepsis Screen Date sepsis recognized/suspect: Jul 02, 2025 Time Sepsis recognized/suspect: 1121 Recent Procedure: No On Antibiotic Therapy: No Respiratory Rate >20: No Heart Rate >90: No Temp<36 C (96.8 F) or >38.3 C: No SBP <90 or MAP <65 mmHG: No New Acute Mental Status Change: No Is the patient on CPAP, BIPAP,: No Physician Orders Sodium Chloride 0.9% (07/02/25 16:15) Communication Order (07/02/25 16:07) Blood Culture (07/02/25 16:14) Insert/Manage Urinary Catheter QSHIFT (07/02/25 16:27) Urine Bacterial Culture (07/02/25 16:38) Norepinephrine 8 Mg/250ml Kit (Levophed) (07/02/25 19:15) Paracentesis (07/02/25 19:53) Vancomycin (07/02/25 20:00) Lactulose Oral (07/02/25 22:00) Midodrine Tablet (Proamatine Tablet) (07/02/25 20:00) Midodrine Tablet (Proamatine Tablet) (07/03/25 06:00) Famotidine Injection (Pepcid Injection) (07/03/25 10:00) Ibuprofen Tablet (Motrin Tablet) (07/02/25 20:00) Consistent Carb(Ccho)Diabetes (07/03/25 Breakfast) * Cardiology Consult (07/02/25 19:53) Levofloxacin Levaquin (07/03/25 10:00) Glucose Blood (Accu-Chek Comfort Curve T (07/02/25 22:00) Mild Sliding Scale (07/02/25 22:00) Dextrose 50% Syringe (07/02/25 20:00) Admit (07/02/25 19:53) Allergies (07/02/25 19:53) Code Status (07/02/25:53) 0.9% Ns 1000 Ml (07/02/25 20:00) Oxygen Per Hour (07/02/25 19:53) Hydrocodone-Acet 5/325mg Tab ([place] 5/32 (07/02/25 20:00) Ondansetron Hcl (Zofran) (07/02/25 20:00) Docusate Sodium Capsule (Colace Capsule) (07/02/25 20:00) Fall Risk Precautions In Place QSHIFT (07/02/25 19:53) Complete Blood Count (07/03/25 04:00) Comprehensive Metabolic Panel (07/03/25 04:00) Condition: Critical (07/02/25 19:53) Maintain Bed Rest (07/02/25 19:53) Sequential Compression Device (07/02/25 ) Nitroglycerin Sublingual (Ntrostat Subli (07/02/25 20:00) Morphine Sulfate Injection (07/02/25 20:00) Stat Ekg For Chest Pain (07/02/25 19:53) Notify Of Changes From Base (07/02/25 19:53) Flare Maker For 24 Hours (07/02/25 19:53) Emergency Dysrhythmia Protocol (07/02/25 19:53) Rhythm Strips Once Every Shift (07/02/25 19:53) Oxygen By Nasal Cannula (07/02/25 19:53) Vital Signs Date Time Temp Pulse Resp B/P (MAP) Pulse Ox O2 Delivery O2 Flow Rate FiO2 07/02/25 19:00 64 10 96 Nasal Cannula* 2 28 07/02/25 19:00 98.3 64 9 102/47 (65) 95 98.3 07/02/25 18:15 60 9 103/67 (79) 97 07/02/25 18:00 73 12 114/50 (71) 98 07/02/25 18:00 114/50 07/02/25 17:45 55 10 120/43 (68) 98 07/02/25 17:30 60 10 115/45 (68) 96 07/02/25 17:20 132/52 07/02/25 17:15 60 10 116/41 (66) 96 07/02/25 17:14 125/50 07/02/25 17:09 125/50 07/02/25 16:50 61 10 121/43 (69) 97 07/02/25 16:23 106/38 07/02/25 16:15 66 9 106/38 (60) 97 07/02/25 16:00 98.0 66 9 101/35 (57) 97 98.0 07/02/25 15:40 71 10 115/45 (68) 96 07/02/25 14:30 64 12 90/33 (52) 99 07/02/25 14:18 68 12 96/34 07/02/25 12:47 78 18 121/48 07/02/25 12:30 78 15 96 Nasal Cannula* 2 28 07/02/25 12:30 98.7 78 30 121/48 (72) 97 98.7 Laboratory Tests Test 07/02/25 13:04 07/02/25 16:55 White Blood Count 7.3 10^3/uL (4.4-10.8) Lactic Acid Level 1.4 mmol/L (0.4-2.0) Medications Medications Dose Ordered Sig/Janusz Route Start Time Stop Time Status Last Admin Dose Admin Ceftriaxone Sodium 50 ml @ 100 mls/hr ONCE ONCE IV 07/02/25 16:15 07/02/25 16:44 DC 07/02/25 17:26 100 MLS/HR Morphine Sulfate 4 mg ONCE ONCE IV 07/02/25 12:15 07/02/25 12:16 DC 07/02/25 12:47 4 MG Norepinephrine Bitartrate 250 ml @ 3.75 mls/hr Q24H IV 07/02/25 16:15 07/02/25 18:41 DC 07/02/25 16:23 18.75 MLS/HR Ondansetron HCl 4 mg ONCE ONCE IV 07/02/25 12:15 07/02/25 12:16 DC 07/02/25 12:47 4 MG Sodium Chloride 500 ml @ 500 mls/hr Q1H ONCE IV 07/02/25 18:45 07/02/25 19:44 DC 07/02/25 19:05 500 MLS/HR Sodium Chloride 1,000 ml @ 150 mls/hr Q6H40M IV 07/02/25 16:15 07/02/25 16:24 150 MLS/HR Sodium Chloride 1,000 ml @ 1,000 mls/hr Q1H ONCE IV 07/02/25 14:15 07/02/25 15:03 DC 07/02/25 14:18 1,000 MLS/HR Vancomycin HCl 250 ml @ 250 mls/hr ONCE ONCE IV 07/02/25 16:15 07/02/25 17:14 DC 07/02/25 17:42 250 MLS/HR Assessment/Plan Assessment/Plan Sepsis, unspecified organism Liver failure Urinary tract infection Electrolyte imbalance Intractable abdominal pain Generalized weakness Plan 1. Admit to intensive care unit 2. Breathing treatment 3. Pain control management 4. IV antibiotic management 5. Management of fluids and electrolytes 6. Consultation for Cardiology 7. Diagnostic test chest x-ray 8. DVT prophylaxis-on SCDs 9. Repeat labs CBC, CMP in a.m. 10. Home medication reviewed and reconciled 11. Continue with current medical management 12. Treatment plan discussed with patient and RN. Patient verbalized understanding. Plan discussed with: Patient, Other (RN) My Orders Orders - TROY HUMMEL DNP Procedure Category Date Status Time Paracentesis 07/02/25 Verified 19:53 Vancomycin PHA 07/02/25 Verified 20:00 Lactulose Oral PHA 07/02/25 Verified 22:00 Midodrine Tablet PHA 07/02/25 Verified (Proamatine Tablet) 20:00 Midodrine Tablet PHA 07/03/25 Verified (Proamatine Tablet) 06:00 Famotidine Injection PHA 07/03/25 Verified (Pepcid Injection) 10:00 Ibuprofen Tablet PHA 07/02/25 Verified (Motrin Tablet) 20:00 Consistent DIET 07/03/25 Verified Carb(Ccho)Diabetes Breakfast * Cardiology Consult CONS 07/02/25 Verified 19:53 Levofloxacin Levaquin PHA 07/03/25 Verified 10:00 Glucose Blood PHA 07/02/25 Verified (Accu-Chek Comfort 22:00 Mild Sliding Scale PHA 07/02/25 Verified 22:00 Dextrose 50% Syringe PHA 07/02/25 Verified 20:00 Admit ADMIT 07/02/25 Verified 19:53 Allergies MELLISSA 07/02/25 Verified 19:53 Code Status CODE 07/02/25 Verified 19:53 0.9% Ns 1000 Ml PHA 07/02/25 Verified 20:00 Oxygen Per Hour RT 07/02/25 Verified 19:53 Hydrocodone-Acet PHA 07/02/25 Verified 5/325mg Tab ([place] 20:00 Ondansetron Hcl PHA 07/02/25 Verified (Zofran) 20:00 Docusate Sodium PHA 07/02/25 Verified Capsule (Colace 20:00 Fall Risk Precautions [facility] 07/02/[address] 19:53 Complete Blood Count LAB 07/03/25 Verified 04:00 Comprehensive LAB 07/03/25 Verified Metabolic Panel 04:00 Condition: Critical [facility] 07/02/25 Verified 19:53 Maint[address] Bed Rest [facility] 07/02/25 Verified 19:[address] [facility] 07/02/25 Verified Compression Device Nitroglycerin PHA 07/02/25 Verified Sublingual (Ntrostat 20:00 Morphine Sulfate PHA 07/02/25 Verified Injection 20:00 Stat Ekg For Chest [facility] 07/02/25 Verified Pain 19:53 Notify Of Changes [facility] 07/02/25 Verified From Base 19:[address] Fl[address] [facility] 07/02/25 Verified 24 Hours 19:[address] [facility] 07/02/25 Verified Protocol 19:53 Rhythm Strips Once MELLISSA 07/02/25 Verified Every Shift 19:53 Oxygen By Nasal RT 07/02/25 Verified Cannula 19:53 Problem List: (1) Sepsis, unspecified organism (2) Liver failure (3) Urinary tract infection (4) Electrolyte imbalance (5) Intractable abdominal pain (6) Generalized weakness Date of Service: Jul 02, 2025 Billing Provider: TROY HUMMEL DNP Common Visit Codes: [id number] INP/OBS CARE (HIGH) TROY HUMMEL DNP Jul 02, 2025 20:06
[2025-07-02] MEDS: MIDODRINE HCL 10 MG TAB ONE (20:28)
[2025-07-02] MEDS: MIDODRINE HCL 10 MG TAB PO ONE (20:34)
--- NOTE | 2025-07-02 20:39 | DVH ---
EXAM: US ABDOMEN LIMITED INDICATION: FLUID CHECK FOR POSSIBLE PARA TECHNIQUE: Grayscale and color Doppler sonographic imaging evaluation of the region of concern. COMPARISON: None FINDINGS: Fluid seen dental 4 quadrants, [id number]. Incidental finding of trace fluid seen in bilateral chest compatible pleural effusions. Overall medium volume ascites. IMPRESSION: 1. Ascites.
[2025-07-02 21:30] LABS: INR 1.17 (0.9-1.15); Partial Thromboplastin Time 26.8 SEC (24.5-34.5); Prothrombin Time 12.2 sec (9.3-11.8)
[2025-07-02] MEDS: LACTULOSE 20Gm/30ML SOLN PO SCH (22:00)
[2025-07-02] MEDS: InsuLIN REG 1unit/0.01ml Soln (100units/ml) SC SCH (23:00)
[2025-07-02] MEDS: ACCU-CHEK COMFORT CURVE STRIP VI SCH (23:00)
[2025-07-03] MEDS: SODIUM CHLORIDE 0.9% 1,000 ML IV ONE
[2025-07-03 07:30] VITALS: PULSE 77; RESP 14; O2SAT 96
[2025-07-03] MEDS: MIDODRINE HCL 10 MG TAB PO SCH (08:22)
[2025-07-03] MEDS: MIDODRINE HCL 10 MG TAB ONE ×2 (08:22→12:09)
[2025-07-03] MEDS: FAMOTIDINE (10MG/ML) 2ML VL IV SCH (10:25)
[2025-07-03] MEDS: FAMOTIDINE (10MG/ML) 2ML VL IV ONE (10:26)
--- NOTE | 2025-07-03 11:35 | DVHINCON2 ---
Date Seen: Jul 03, 2025 Referring Physician JAZIEL Massey Reason for Consultation Hypotension History of Present Illness This is an 85-year-old female patient who presents to emergency room with chief complaint of abdominal distention. The patient is currently staying at [facility]. She reports that she has been having abdominal distention and discomfort and was brought to this facility for possible paracentesis. Cardiology has been consulted at this time for concern of hypotension. The patient denies any cardiac symptoms at time of assessment. No twelve lead electrocardiogram found in patient's chart or on cardio windows server engineer. A twelve lead electrocardiogram was obtained at time of assessment and reveals normal sinus rhythm without any significant ST segment changes. Significant past medical history includes dyslipidemia, COPD, chronic kidney disease, liver cirrhosis, and type 2 diabetes mellitus. The patient reports that she has never had any cardiac issues. Past Medical History Past medical history reviewed. No other significant than mentioned above. Past Surgical History Hysterectomy Family History Family history reviewed. Social History Patient admits to previous alcohol use, states she no longer drinks alcohol Denies illicit drug use Patient has a 50 pack-year history, quit smoking nine years ago Allergies: Coded Allergies: Aspirin (Verified Allergy, Unknown, 05/14/25) Penicillins (Verified Allergy, Unknown, 05/14/25) Home Meds Home medications reviewed. Current Medications Current Medications Medications (Trade) Dose Ordered Sig/Janusz Route PRN Reason Start Time Stop Time Status Last Admin Sodium Chloride 1,000 ml @ 150 mls/hr Q6H40M IV 07/02/25 16:15 07/02/25 20:06 DC 07/02/25 16:24 Norepinephrine Bitartrate 250 ml @ 3.75 mls/hr Q24H IV 07/02/25 16:15 07/02/25 18:41 DC 07/02/25 16:23 Norepinephrine Bitartrate 250 ml @ 3.75 mls/hr Q24H IV 07/02/25 19:15 07/02/25 21:55 Vancomycin HCl 0 ml @ 0 mls/hr PER PHARMACY IV 07/02/25 20:00 Lactulose 30 ml BID PO 07/02/25 22:00 07/03/25 10:25 Midodrine (Proamatine Tablet) 10 mg TID@0600,1200,1800 PO 07/03/25 06:00 07/03/25 08:22 Famotidine (Pepcid Injection) 20 mg DAILY IV 07/03/25 10:00 07/03/25 10:25 Ibuprofen (Motrin Tablet) 400 mg Q8HP PRN PO PAIN SCALE 1-3 OR TEMP>100.4 07/02/25 20:00 Diagnostic Test (Pha) (Accu-Chek Comfort Curve T) 1 strip ACHS 07/02/25 22:00 07/03/25 07:00 Insulin Human Regular (InsuLIN R) ACHS SC 07/02/25 22:00 Dextrose 50 ml UD PRN IV Blood Sugar LESS THAN 60 07/02/25 20:00 Sodium Chloride 1,000 ml @ 60 mls/hr [id number] IV 07/02/25 20:00 07/02/25 23:27 DC 07/02/25 20:33 Acetaminophen/ Hydrocodone Bitart ([place]ullen 5/325MG Tab) 1 tab Q4HP PRN PO MODERATE PAIN (4-6 PAIN SCALE) 07/02/25 20:00 Ondansetron HCl (Zofran) 4 mg Q4HP PRN IV NAUSEA / VOMITING 07/02/25 20:00 Docusate Sodium (Colace Capsule) 100 mg BIDPRN PRN PO FOR CONSTIPATION 07/02/25 20:00 Nitroglycerin (Ntrostat Sublingual) 0.4 mg Q5MINP PRN SL FOR CHEST PAIN 07/02/25 20:00 Morphine Sulfate 2 mg Q30M PRN IV FOR CHEST PAIN 07/02/25 20:00 Levofloxacin 50 ml @ 50 mls/hr DAILY IV 07/04/25 10:00 Dextrose 1,000 ml @ 60 mls/hr [id number] IV 07/02/25 23:30 07/02/25 00:00 Review of Systems Constitutional: No symptom reported Ears, Nose, & Throat: No symptom reported Eyes: No symptom reported Neurological: No symptoms reported Pulmonary/Respiratory: No symptoms reported Cardiovascular: No symptom reported Gastrointestinal: Abdominal distention Genitourinary: No symptom reported Musculoskeletal: No symptom reported Skin: No symptom reported Psychiatric: No symptom reported Endocrine: No symptom reported Hematologic/Lymphatic: No symptom reported Vital Signs Vital Signs Date Time Temp Pulse Resp B/P (MAP) Pulse Ox O2 Delivery O2 Flow Rate FiO2 07/03/25 11:00 73 18 88/35 (52) 97 07/03/25 07:30 Nasal Cannula* 2 28 07/03/25 07:30 97.9 97.9 Physical Exam General Appearance: Cooperative. Well-developed. Well-nourished. No acute distress. Pulmonary/Respiratory: Clear, bilateral breaths sounds. Cardiovascular/Chest: Regular rate and rhythm. Peripheral Pulses: 2+ Radial (R). 2+ Radial (L). 2+ Pedal (R). 2+ Pedal (L) Abdominal Exam: Normal bowel sounds. Large, distended abdomen Ankle Exam: 1+ pitting edema Lower extremities: 1+ pitting edema Neuro/Mental Status: A/OX4, coherent. Thoughts/Psych: Normal thought pattern. Appropriate mood and affect. Good judgment and insight. Appearance: No acute distress. Skin Exam: Normal inspection. Normal color. Warm and dry. Labs/Diagnostic Data Labs Test 07/02/25 23:11 07/02/25 20:40 07/02/25 16:55 07/02/25 16:32 Range/Units POC Glucose 85 70-106 mg/dl Prothrombin Time 12.2 H 9.3-11.8 sec Prothrombin Time INR 1.17 H 0.9-1.15 Activated Partial Thromboplast Time 26.8 24.5-34.5 SEC Lactic Acid Level 1.4 0.4-2.0 mmol/L Urine Color Yellow Yellow Urine Clarity Clear Clear Urine pH 5.5 5.0-9.0 Urine Specific [place] 1.019 1.001-1.035 Urine Protein Trace H Negative Urine Ketones Negative Negative Urine Blood Negative Negative /uL Urine Nitrite Negative Negative Urine Bilirubin Negative Negative Urine Urobilinogen Normal Negative mg/dL Urine Leukocyte Esterase 3+ Negative /uL Urine RBC 4 0 - 4 /hpf Urine Microscopic WBC 51 H 0-5 /HPF Urine Squamous Epithelial Cells Few <5 /hpf Urine Bacteria None seen None Seen /hpf Urine Glucose Normal Normal mg/dL Test 07/02/25 13:04 Range/Units White Blood Count 7.3 4.4-10.8 10^3/uL Red Blood Count 3.96 L 4.0-5.20 10^6/uL Hemoglobin 11.4 L 12.2-16.2 g/dL Hematocrit 34.9 L 36.0-46.0 % Mean Corpuscular Volume 88.1 80.0-100.0 fL Mean Corpuscular Hemoglobin 28.8 28.0-32.0 pg Mean Corpuscular Hemoglobin Concent 32.7 32.0-36.0 g/dL Red Cell Distribution Width 19.5 H 11.8-14.3 % Platelet Count 138 L 140-450 10^3/uL Mean Platelet Volume 8.5 6.9-10.8 fL Neutrophils (%) (Auto) 71.6 37.0-80.0 % Lymphocytes (%) (Auto) 12.8 10.0-50.0 % Monocytes (%) (Auto) 11.3 0.0-12.0 % Eosinophils (%) (Auto) 3.9 0.0-7.0 % Basophils (%) (Auto) 0.4 0.0-2.0 % Neutrophils # (Auto) 5.2 1.6-8.6 10 ^3/uL Lymphocytes # (Auto) 0.9 0.4-5.4 10 ^3/uL Monocytes # (Auto) 0.8 0-1.3 10 ^3/uL Eosinophils # (Auto) 0.3 0-0.8 10 ^3/uL Basophils # (Auto) 0 0-0.2 10 ^3/uL Nucleated Red Blood Cells 0.1 % Sodium Level 145 136-145 mmol/L Potassium Level 4.2 3.5-5.1 mmol/L Chloride Level 112 H 98-107 mmol/L Carbon Dioxide Level 24 20-31 mmol/L Anion Gap 9 5-15 Blood Urea Nitrogen 22 9-23 mg/dL Creatinine 1.09 H 0.550-1.02 mg/dL Glomerular Filtration Rate Calc 50 >90 mL/min BUN/Creatinine Ratio 20.2 H 10.0-20.0 Serum Glucose 93 74-106 mg/dL Calcium Level 7.8 L 8.7-10.4 mg/dL Total Bilirubin 1.1 H 0.2-1.0 mg/dL Aspartate Amino Transferase (AST) 56 H 13-40 U/L Alanine Aminotransferase (ALT) 32 7-40 U/L Alkaline Phosphatase 348 H 46-116 U/L Total Protein 6.0 5.7-8.2 g/dL Albumin 3.0 L 3.2-4.8 g/dL Lipase 40 12-53 U/L Assessment Hypotension Dyslipidemia Ascites with liver cirrhosis COPD Type 2 diabetes mellitus Plan/Recommendation We will continue with the following plan/recommendations (): Case discussed in detail with . Prior to assessment, patient changed her code status to comfort measures only. While talking with the patient, she reports that she does not want any kind of intervention at this time. She is also refusing any vasopressors or ACLS medications for hemodynamic support. Offered patient noninvasive workup including echocardiogram, which she is also refusing. We will respectfully proceed with the patient's wishes. Cardiology will sign off given patient is refusing any services from cardiology team. Please reconsult if needed. Thank you for allowing us to care for this patient. Please call with any questions or concerns. Critical care time spent: 44 minutes This medical document was created using an electronic medical record system with voice recognition software and computerized dictation system. Although this document has been carefully reviewed, there might still be some phonetic and typographical errors. Occasional wrong-word or ``sound-alike substitutions may have occurred due to the inherent limitations of voice recognition software. These areas are purely typographical due to imperfections of the software programs and do not reflect any compromise in the patient's medical care. Please read the chart carefully and recognize, using context, where these substitutions have occurred. Plan discussed with: Patient NYHA Physical activity limitations: NA Date of Service: Jul 03, 2025 Billing Provider: KAY BARTHOLOMEW Cardiology Common Codes: [id number] INP/OBS CARE (High) Cardiology Consultation Codes: [id number] CONSULT <45MIN KAY BARTHOLOMEW Jul 03, 2025 11:35
--- NOTE | 2025-07-03 13:23 | DVHPN2 ---
Reviewed: Care Plan, H&P, Labs, Medications, Previous Orders, Radiology Changes from previous H/P or p: No Changes Eyes: No Pain, No Vision change, No Conjunctivae inflammation, No Eyelid inflammation, No Other, No Redness ENT: No Ear pain, No Ear discharge, No Nose pain, No Nose discharge, No Nose congestion, No Mouth pain, No Mouth swelling, No Throat pain, No Throat swelling, No Other Cardiovascular: No Chest Pain, No Palpitations, No Orthopnea, No Paroxysmal Noc. Dyspnea, No Edema, No Lt Headedness; Other (Hypotension) Respiratory: No Cough, No Dry, No Shortness of breath, No SOB with excertion, No Wheezing, No Hemoptysis, No Pleuritic Pain, No Sputum, No Other Gastrointestinal: No Nausea, No Vomiting; Abdominal Pain; No Diarrhea, No Constipation, No Melena, No Hematochezia; Other (Distended abdomen) Genitourinary: No Dysuria, No Frequency, No Incontinence, No Hematuria, No Retention, No Other Musculoskeletal: No other, No neck pain, No shoulder pain, No arm pain, No back pain, No hand pain, No leg pain, No foot pain Skin: No Rash, No Lesions, No Jaundice, No Bruising, No Other Objective Vitals Vital Signs Date Time Temp Pulse Resp B/P (MAP) Pulse Ox O2 Delivery O2 Flow Rate FiO2 07/03/25 13:00 57 14 89/37 (54) 99 07/03/25 07:30 Nasal Cannula* 2 28 07/03/25 07:30 97.9 97.9 Intake/Output Intake and Output 07/03/25 07:00 Intake Total 300 ml Output Total 1300 ml Balance -1000 ml IV Total 300 ml Output Urine Total 1300 ml Medications Current Medications Medications Dose Ordered Sig/Janusz Route Start Time Stop Time Status Last Admin Dose Admin Norepinephrine Bitartrate 250 ml @ 3.75 mls/hr Q24H IV 07/02/25 19:15 07/02/25 21:55 3.75 MLS/HR Vancomycin HCl 0 ml @ 0 mls/hr PER PHARMACY IV 07/02/25 20:00 Lactulose 30 ml BID PO 07/02/25 22:00 07/03/25 10:25 30 ML Midodrine 10 mg TID@0600,1200,1800 PO 07/03/25 06:00 07/03/25 12:08 10 MG Famotidine 20 mg DAILY IV 07/03/25 10:00 07/03/25 10:25 20 MG Ibuprofen 400 mg Q8HP PRN PO 07/02/25 20:00 Diagnostic Test (Pha) 1 strip ACHS 07/02/25 22:00 07/03/25 11:40 1 STRIP Insulin Human Regular ACHS SC 07/02/25 22:00 Dextrose 50 ml UD PRN IV 07/02/25 20:00 Acetaminophen/ Hydrocodone Bitart 1 tab Q4HP PRN PO 07/02/25 20:00 Ondansetron HCl 4 mg Q4HP PRN IV 07/02/25 20:00 Docusate Sodium 100 mg BIDPRN PRN PO 07/02/25 20:00 Nitroglycerin 0.4 mg Q5MINP PRN SL 07/02/25 20:00 Morphine Sulfate 2 mg Q30M PRN IV 07/02/25 20:00 Levofloxacin 50 ml @ 50 mls/hr DAILY IV 07/04/25 10:00 Dextrose 1,000 ml @ 60 mls/hr [id number] IV 07/02/25 23:30 07/02/25 00:00 60 MLS/HR Laboratory Results Laboratory Tests 07/02/25 13:04 Coagulation Test 07/02/25 20:40 Prothrombin Time 12.2 sec (9.3-11.8) H Prothrombin Time INR 1.17 (0.9-1.15) H Activated Partial Thromboplast Time 26.8 SEC (24.5-34.5) Urinalysis Test 07/02/25 16:32 Urine Color Yellow (Yellow) Urine Clarity Clear (Clear) Urine pH 5.5 (5.0-9.0) Urine Specific [place] 1.019 (1.001-1.035) Urine Protein Trace (Negative) H Urine Ketones Negative (Negative) Urine Blood Negative /uL (Negative) Urine Nitrite Negative (Negative) Urine Bilirubin Negative (Negative) Urine Urobilinogen Normal mg/dL (Negative) Urine Leukocyte Esterase 3+ /uL (Negative) Urine RBC 4 /hpf (0 - 4) Urine Microscopic WBC 51 /HPF (0-5) H Urine Squamous Epithelial Cells Few /hpf (<5) Urine Bacteria None seen /hpf (None Seen) Urine Glucose Normal mg/dL (Normal) Microbiology Microbiology Date/Time Source Procedure Growth Status 07/02/25 16:32 Urine - [place] Urine Culture - Preliminary No growth Resulted Labs and/or images reviewed: Labs reviewed by me, Image(s) reviewed by me Assessment/Plan Assessment/Plan Acute abdominal pain secondary to ascites Moderate ascites: Consult for Interventional radiologist for paracentesis Cirrhosis of liver Acute hypotension cardiology consult appreciated the patient declines any cardiac intervention including medications for blood pressure support UTI: Rocephin IV Patient is DNR Time spent 55 minutes Advanced care planning time 20 minutes Patient came from [place] [facility] Plan discussed with: Patient Date of Service: Jul 03, 2025 Billing Provider: GARLAND GARRIDO MD Common Visit Codes: [id number] INP/OBS CARE(HIGH) Secondary Visit Codes: [id number] CARE PLAN 30 MINUTES GARLAND GARRIDO MD Jul 03, 2025 13:23
[2025-07-03 13:46] LABS: Alanine Aminotransferase 30 U/L (7-40); Anion Gap 8 (5-15); BUN/Creatinine Ratio 14.7 (10.0-20.0); Bilirubin, Total 0.7 mg/dL (0.2-1.0); Blood Urea Nitrogen 17 mg/dL (9-23); Carbon Dioxide 23 mmol/L (20-31); Potassium 4.5 mmol/L (3.5-5.1); Sodium 143 mmol/L (136-145)
[2025-07-03 13:47] LABS: Hematocrit 36.1 % (36.0-46.0); Hemoglobin 11.4 g/dL (12.2-16.2); Mean Corpuscular Hemoglobin 30.5 pg (28.0-32.0); Mean Corpuscular Volume 96.3 fL (80.0-100.0); Nucleated Red Blood Cells % 0.2 %
[2025-07-03 14:09] LABS: Albumin 2.6 g/dL (3.2-4.8); Alkaline Phosphatase 344 U/L (46-116); Calcium 7.1 mg/dL (8.7-10.4); Chloride 112 mmol/L (98-107); Glucose 157 mg/dL (74-106); Total Protein 5.5 g/dL (5.7-8.2)
[2025-07-03] MEDS: VANCOMYCIN 750MG KIT 100 ML IV SCH (17:00)
[2025-07-03 20:00] VITALS: PULSE 55; PULSE 71; RESP 18; O2SAT 98
[2025-07-03 21:00] VITALS: BP 106/45; PULSE 71; RESP 17; TEMP 97.6; O2SAT 98
[2025-07-04] VITALS (8 sets, daily range): BP systolic 77–148; BP diastolic 34–89; PULSE 54–80; RESP 16–22; TEMP 97.2–98.9; O2SAT 90–100
[2025-07-04] MEDS: HYDROcodone-ACET 5/325MG TAB PO PRN (05:47)
[2025-07-04 06:18] LABS: Hematocrit 36.8 % (36.0-46.0); Hemoglobin 12.1 g/dL (12.2-16.2); Mean Corpuscular Hemoglobin 29.6 pg (28.0-32.0); Mean Corpuscular Volume 89.9 fL (80.0-100.0); Nucleated Red Blood Cells % 0.1 %
--- NOTE | 2025-07-04 10:07 | DVHPN2 ---
Reviewed: Care Plan, H&P, Labs, Medications, Previous Orders, Radiology Changes from previous H/P or p: No Changes Eyes: No Pain, No Vision change, No Conjunctivae inflammation, No Eyelid inflammation, No Other, No Redness ENT: No Ear pain, No Ear discharge, No Nose pain, No Nose discharge, No Nose congestion, No Mouth pain, No Mouth swelling, No Throat pain, No Throat swelling, No Other Cardiovascular: No Chest Pain, No Palpitations, No Orthopnea, No Paroxysmal Noc. Dyspnea, No Edema, No Lt Headedness; Other (Hypotension) Respiratory: No Cough, No Dry, No Shortness of breath, No SOB with excertion, No Wheezing, No Hemoptysis, No Pleuritic Pain, No Sputum, No Other Gastrointestinal: No Nausea, No Vomiting; Abdominal Pain; No Diarrhea, No Constipation, No Melena, No Hematochezia; Other (Distended abdomen) Genitourinary: No Dysuria, No Frequency, No Incontinence, No Hematuria, No Retention, No Other Musculoskeletal: No other, No neck pain, No shoulder pain, No arm pain, No back pain, No hand pain, No leg pain, No foot pain Skin: No Rash, No Lesions, No Jaundice, No Bruising, No Other Objective Vitals Vital Signs Date Time Temp Pulse Resp B/P (MAP) Pulse Ox O2 Delivery O2 Flow Rate FiO2 07/04/25 05:00 97.9 80 17 93/56 (68) 98 97.9 07/03/25 20:00 Room Air* 0 21 Intake/Output Intake and Output 07/04/25 07:00 Intake Total 1480 ml Output Total 900 ml Balance 580 ml Intake Oral 800 ml IV Total 680 ml Output Urine Total 900 ml Medications Current Medications Medications Dose Ordered Sig/Janusz Route Start Time Stop Time Status Last Admin Dose Admin Norepinephrine Bitartrate 250 ml @ 3.75 mls/hr Q24H IV 07/02/25 19:15 07/02/25 21:55 3.75 MLS/HR Vancomycin HCl 0 ml @ 0 mls/hr PER PHARMACY IV 07/02/25 20:00 Lactulose 30 ml BID PO 07/02/25 22:00 07/03/25 10:25 30 ML Midodrine 10 mg TID@0600,1200,1800 PO 07/03/25 06:00 07/04/25 05:46 10 MG Famotidine 20 mg DAILY IV 07/03/25 10:00 07/03/25 10:25 20 MG Ibuprofen 400 mg Q8HP PRN PO 07/02/25 20:00 Diagnostic Test (Pha) 1 strip ACHS 07/02/25 22:00 07/04/25 06:35 1 STRIP Insulin Human Regular ACHS SC 07/02/25 22:00 Dextrose 50 ml UD PRN IV 07/02/25 20:00 Acetaminophen/ Hydrocodone Bitart 1 tab Q4HP PRN PO 07/02/25 20:00 07/04/25 05:47 1 TAB Ondansetron HCl 4 mg Q4HP PRN IV 07/02/25 20:00 Docusate Sodium 100 mg BIDPRN PRN PO 07/02/25 20:00 Nitroglycerin 0.4 mg Q5MINP PRN SL 07/02/25 20:00 Morphine Sulfate 2 mg Q30M PRN IV 07/02/25 20:00 Levofloxacin 50 ml @ 50 mls/hr DAILY IV 07/04/25 10:00 Dextrose 1,000 ml @ 60 mls/hr [id number] IV 07/02/25 23:30 07/03/25 16:24 60 MLS/HR Vancomycin HCl 100 ml @ 100 mls/hr Q24H IV 07/03/25 17:00 07/03/25 17:00 100 MLS/HR Laboratory Results Laboratory Tests 07/03/25 13:10 07/04/25 05:22 Chemistry Test 07/03/25 13:10 Albumin 2.6 g/dL (3.2-4.8) L Calcium Level 7.1 mg/dL (8.7-10.4) L Total Protein 5.5 g/dL (5.7-8.2) L LFT Test 07/03/25 13:10 Alanine Aminotransferase (ALT) 30 U/L (7-40) Alkaline Phosphatase 344 U/L (46-116) H Aspartate Amino Transferase (AST) 57 U/L (13-40) H Total Bilirubin 0.7 mg/dL (0.2-1.0) Urinalysis Test 07/02/25 16:32 Urine Color Yellow (Yellow) Urine Clarity Clear (Clear) Urine pH 5.5 (5.0-9.0) Urine Specific [place] 1.019 (1.001-1.035) Urine Protein Trace (Negative) H Urine Ketones Negative (Negative) Urine Blood Negative /uL (Negative) Urine Nitrite Negative (Negative) Urine Bilirubin Negative (Negative) Urine Urobilinogen Normal mg/dL (Negative) Urine Leukocyte Esterase 3+ /uL (Negative) Urine RBC 4 /hpf (0 - 4) Urine Microscopic WBC 51 /HPF (0-5) H Urine Squamous Epithelial Cells Few /hpf (<5) Urine Bacteria None seen /hpf (None Seen) Urine Glucose Normal mg/dL (Normal) Microbiology Microbiology Date/Time Source Procedure Growth Status 07/02/25 17:06 Blood Blood Culture - Preliminary NO GROWTH AFTER 24 HOURS OF INCUBATION. Resulted 07/02/25 16:32 Urine - [place] Urine Culture - Preliminary No growth Resulted Labs and/or images reviewed: Labs reviewed by me, Image(s) reviewed by me Assessment/Plan Assessment/Plan Acute abdominal pain secondary to ascites Moderate ascites: Consult for Interventional radiologist for paracentesis Cirrhosis of liver Acute hypotension cardiology consult appreciated the patient declines any cardiac intervention including medications for blood pressure support UTI: Blood Cultures negative, urine cultures negative continue Rocephin IV Patient is DNR Time spent 55 minutes Advanced care planning time 20 minutes Patient came from [place] [facility] acute under the care of Dr. Mikaela Rico Plan discussed with: Patient My Orders Orders - GARLAND GARRIDO MD Procedure Category Date Status Time * Radiologist Consult CONS 07/03/25 Transmitted 13:20 Date of Service: Jul 04, 2025 Billing Provider: GARLAND GARRIDO MD Common Visit Codes: [id number] INP/OBS CARE(HIGH) GARLAND GARRIDO MD Jul 04, 2025 10:07
--- NOTE | 2025-07-04 19:21 | DVH ---
PROCEDURE: ULTRASOUND GUIDED PARACENTESIS HISTORY: 85 Female requiring paracentesis. TECHNIQUE: The risks and benefits of the procedure including but not limited to bleeding, infection and injury to abdominal organs were explained to the patient and written informed consent was obtained. Optimal site for puncture was determined using ultrasound and the area sterilized and draped. Using a 5 [place] [employer] catheter, paracentesis was performed in the right lower abdomen. Approximately 4 liters of straw colored fluid was removed. The patient tolerated the procedure well. There were no immediate complications. IMPRESSION: Ultrasound-guided paracentesis with no immediate complications.
[2025-07-05] VITALS (8 sets, daily range): BP systolic 96–146; BP diastolic 47–66; PULSE 58–86; RESP 15–17; TEMP 97.5–98.3; O2SAT 94–99
--- NOTE | 2025-07-05 10:07 | DVHPN2 ---
Reviewed: Care Plan, H&P, Labs, Medications, Previous Orders, Radiology Changes from previous H/P or p: No Changes Eyes: No Pain, No Vision change, No Conjunctivae inflammation, No Eyelid inflammation, No Other, No Redness ENT: No Ear pain, No Ear discharge, No Nose pain, No Nose discharge, No Nose congestion, No Mouth pain, No Mouth swelling, No Throat pain, No Throat swelling, No Other Cardiovascular: No Chest Pain, No Palpitations, No Orthopnea, No Paroxysmal Noc. Dyspnea, No Edema, No Lt Headedness; Other (Hypotension) Respiratory: No Cough, No Dry, No Shortness of breath, No SOB with excertion, No Wheezing, No Hemoptysis, No Pleuritic Pain, No Sputum, No Other Gastrointestinal: No Nausea, No Vomiting; Abdominal Pain; No Diarrhea, No Constipation, No Melena, No Hematochezia; Other (Distended abdomen) Genitourinary: No Dysuria, No Frequency, No Incontinence, No Hematuria, No Retention, No Other Musculoskeletal: No other, No neck pain, No shoulder pain, No arm pain, No back pain, No hand pain, No leg pain, No foot pain Skin: No Rash, No Lesions, No Jaundice, No Bruising, No Other Objective Vitals Vital Signs Date Time Temp Pulse Resp B/P (MAP) Pulse Ox O2 Delivery O2 Flow Rate FiO2 07/05/25 08:36 97.7 71 16 146/52 (83) 99 97.7 07/04/25 20:28 Nasal Cannula* 2 28 Intake/Output Intake and Output 07/05/25 07:00 Intake Total 610 ml Output Total 550 ml Balance 60 ml Intake Oral 460 ml IV Total 150 ml Output Urine Total 550 ml Medications Current Medications Medications Dose Ordered Sig/Janusz Route Start Time Stop Time Status Last Admin Dose Admin Lactulose 30 ml BID PO 07/02/25 22:00 07/05/25 09:57 30 ML Midodrine 10 mg TID@0600,1200,1800 PO 07/03/25 06:00 07/05/25 06:07 10 MG Ibuprofen 400 mg Q8HP PRN PO 07/02/25 20:00 Diagnostic Test (Pha) 1 strip ACHS 07/02/25 22:00 07/05/25 07:00 1 STRIP Insulin Human Regular ACHS SC 07/02/25 22:00 Dextrose 50 ml UD PRN IV 07/02/25 20:00 Acetaminophen/ Hydrocodone Bitart 1 tab Q4HP PRN PO 07/02/25 20:00 07/04/25 05:47 1 TAB Ondansetron HCl 4 mg Q4HP PRN IV 07/02/25 20:00 Docusate Sodium 100 mg BIDPRN PRN PO 07/02/25 20:00 Nitroglycerin 0.4 mg Q5MINP PRN SL 07/02/25 20:00 Morphine Sulfate 2 mg Q30M PRN IV 07/02/25 20:00 Levofloxacin 50 ml @ 50 mls/hr DAILY IV 07/04/25 10:00 07/05/25 09:57 50 MLS/HR Dextrose 1,000 ml @ 60 mls/hr [id number] IV 07/02/25 23:30 07/05/25 01:30 60 MLS/HR Famotidine 20 mg Q48H IV 07/06/25 10:00 Fluconazole 100 ml @ 100 mls/hr DAILY IV 07/06/25 10:00 UNV Laboratory Results Laboratory Tests 07/03/25 13:10 07/04/25 05:22 07/05/25 05:52 Urinalysis Test 07/02/25 16:32 Urine Color Yellow (Yellow) Urine Clarity Clear (Clear) Urine pH 5.5 (5.0-9.0) Urine Specific [place] 1.019 (1.001-1.035) Urine Protein Trace (Negative) H Urine Ketones Negative (Negative) Urine Blood Negative /uL (Negative) Urine Nitrite Negative (Negative) Urine Bilirubin Negative (Negative) Urine Urobilinogen Normal mg/dL (Negative) Urine Leukocyte Esterase 3+ /uL (Negative) Urine RBC 4 /hpf (0 - 4) Urine Microscopic WBC 51 /HPF (0-5) H Urine Squamous Epithelial Cells Few /hpf (<5) Urine Bacteria None seen /hpf (None Seen) Urine Glucose Normal mg/dL (Normal) Microbiology Microbiology Date/Time Source Procedure Growth Status 07/04/25 14:45 Ascities Fluid Gram Stain - Final Resulted 07/04/25 14:45 Ascities Fluid Body Fluid Culture - Preliminary No growth Resulted 07/02/25 17:06 Blood Blood Culture - Preliminary NO GROWTH AFTER 48 HOURS OF INCUBATION. Resulted 11/22/25 16:32 Urine - [place] Urine Culture - Preliminary Presumptive Kendra albicans Resulted Labs and/or images reviewed: Labs reviewed by me, Image(s) reviewed by me Assessment/Plan Assessment/Plan Acute abdominal pain secondary to ascites Moderate ascites: Status post drainage of 4 L of fluid by the Radiologist, fluid culture results pending Cirrhosis of liver Acute hypotension cardiology consult appreciated the patient declines any cardiac intervention including medications for blood pressure support UTI: Blood Cultures negative, urine cultures growing yeast: Started on Diflucan IV continue Rocephin iv Patient is DNR Time spent 55 minutes Advanced care planning time 20 minutes Patient came from [place] [facility] under the care of Dr. Mikaela Rico Plan discussed with: Patient My Orders Orders - GARLAND GARRIDO MD Procedure Category Date Status Time Fluconazole PHA 07/06/25 Logged 200mg/100ml (Diflucan 10:00 Fluconazole PHA 07/05/25 Logged 200mg/100ml (Diflucan 10:15 Date of Service: Jul 05, 2025 Billing Provider: GARLAND GARRIDO MD Common Visit Codes: [id number] INP/OBS CARE(HIGH) GARLAND GARRIDO MD Jul 05, 2025 10:07
--- NOTE | 2025-07-05 10:29 | ECG ---
[facility] Test Date: 2025-07-03 Test Time: 11:35:55 Pat Name: NAKUL ENGEL Department: ED Room: 0215T B Gender: F Application Chemist: ZAIRE : 1940 Requested By: BARBARA TURCIOS Order Number: [id number] Reading MD: Moe Saldivar Measurements Intervals [place] Rate: 71 P: -5 [place]: 116 QRS: 24 QRSD: 94 T: 38 QT: 406 QTc: 442 Interpretive Statements Sinus rhythm Borderline short [place] interval Borderline low voltage, extremity leads Electronically Signed On 07-06-2025 17:44:09 PST by Moe Saldivar Please click the below link to view image of tracing.
[2025-07-05] MEDS: FLUCONAZOLE 200MG/100ML 100 ML IV ONE (11:39)
[2025-07-05 14:07] LABS: Glucose, Body Fluid 139.0 mg/dL (.)
[2025-07-06] VITALS (7 sets, daily range): BP systolic 88–104; BP diastolic 49–60; PULSE 66–86; RESP 17–18; TEMP 37.1; O2SAT 94–98
--- NOTE | 2025-07-06 08:12 | DVHPN2 ---
Reviewed: Care Plan, H&P, Labs, Medications, Previous Orders, Radiology Changes from previous H/P or p: No Changes Eyes: No Pain, No Vision change, No Conjunctivae inflammation, No Eyelid inflammation, No Other, No Redness ENT: No Ear pain, No Ear discharge, No Nose pain, No Nose discharge, No Nose congestion, No Mouth pain, No Mouth swelling, No Throat pain, No Throat swelling, No Other Cardiovascular: No Chest Pain, No Palpitations, No Orthopnea, No Paroxysmal Noc. Dyspnea, No Edema, No Lt Headedness; Other (Hypotension) Respiratory: No Cough, No Dry, No Shortness of breath, No SOB with excertion, No Wheezing, No Hemoptysis, No Pleuritic Pain, No Sputum, No Other Gastrointestinal: No Nausea, No Vomiting; Abdominal Pain; No Diarrhea, No Constipation, No Melena, No Hematochezia; Other (Distended abdomen) Genitourinary: No Dysuria, No Frequency, No Incontinence, No Hematuria, No Retention, No Other Musculoskeletal: No other, No neck pain, No shoulder pain, No arm pain, No back pain, No hand pain, No leg pain, No foot pain Skin: No Rash, No Lesions, No Jaundice, No Bruising, No Other Objective Vitals Vital Signs Date Time Temp Pulse Resp B/P (MAP) Pulse Ox O2 Delivery O2 Flow Rate FiO2 07/06/25 05:00 98.0 86 17 98/59 (72) 94 98.0 07/05/25 20:00 Nasal Cannula* 2 28 Intake/Output Intake and Output 07/06/25 07:00 Intake Total 900 ml Output Total 900 ml Balance 0 ml Intake Oral 750 ml IV Total 150 ml Output Urine Total 900 ml Medications Current Medications Medications Dose Ordered Sig/Janusz Route Start Time Stop Time Status Last Admin Dose Admin Lactulose 30 ml BID PO 07/02/25 22:00 07/05/25 09:57 30 ML Midodrine 10 mg TID@0600,1200,1800 PO 07/03/25 06:00 07/06/25 05:22 10 MG Ibuprofen 400 mg Q8HP PRN PO 07/02/25 20:00 Diagnostic Test (Pha) 1 strip ACHS 07/02/25 22:00 07/06/25 05:29 1 STRIP Insulin Human Regular ACHS SC 07/02/25 22:00 Dextrose 50 ml UD PRN IV 07/02/25 20:00 Acetaminophen/ Hydrocodone Bitart 1 tab Q4HP PRN PO 07/02/25 20:00 07/04/25 05:47 1 TAB Ondansetron HCl 4 mg Q4HP PRN IV 07/02/25 20:00 Docusate Sodium 100 mg BIDPRN PRN PO 07/02/25 20:00 Nitroglycerin 0.4 mg Q5MINP PRN SL 07/02/25 20:00 Morphine Sulfate 2 mg Q30M PRN IV 07/02/25 20:00 Levofloxacin 50 ml @ 50 mls/hr DAILY IV 07/04/25 10:00 07/05/25 09:57 50 MLS/HR Dextrose 1,000 ml @ 60 mls/hr [id number] IV 07/02/25 23:30 07/05/25 17:56 60 MLS/HR Famotidine 20 mg Q48H IV 07/06/25 10:00 Fluconazole 100 ml @ 100 mls/hr DAILY IV 07/06/25 10:00 Laboratory Results Laboratory Tests 07/03/25 13:10 07/04/25 05:22 07/05/25 05:52 Urinalysis Test 07/02/25 16:32 Urine Color Yellow (Yellow) Urine Clarity Clear (Clear) Urine pH 5.5 (5.0-9.0) Urine Specific [place] 1.019 (1.001-1.035) Urine Protein Trace (Negative) H Urine Ketones Negative (Negative) Urine Blood Negative /uL (Negative) Urine Nitrite Negative (Negative) Urine Bilirubin Negative (Negative) Urine Urobilinogen Normal mg/dL (Negative) Urine Leukocyte Esterase 3+ /uL (Negative) Urine RBC 4 /hpf (0 - 4) Urine Microscopic WBC 51 /HPF (0-5) H Urine Squamous Epithelial Cells Few /hpf (<5) Urine Bacteria None seen /hpf (None Seen) Urine Glucose Normal mg/dL (Normal) Microbiology Microbiology Date/Time Source Procedure Growth Status 07/04/25 14:45 Ascities Fluid Gram Stain - Final Resulted 07/04/25 14:45 Ascities Fluid Body Fluid Culture - Preliminary No growth Resulted 07/02/25 17:06 Blood Blood Culture - Preliminary NO GROWTH AFTER 72 HOURS OF INCUBATION. Resulted 07/02/25 16:32 Urine - [place] Urine Culture - Preliminary Presumptive Kendra albicans Resulted Assessment/Plan Assessment/Plan Acute abdominal pain secondary to ascites Moderate ascites: Status post drainage of 4 L of fluid by the Radiologist, fluid culture results pending Cirrhosis of liver Acute hypotension cardiology consult appreciated the patient declines any cardiac intervention including medications for blood pressure support UTI: Blood Cultures negative, urine cultures growing yeast: Treated with Levaquin and Diflucan IV, converted to p.o. Patient is DNR Time spent 55 minutes Advanced care planning time 20 minutes Patient came from [facility] under the care of Dr. Mikaela Rico Will discharge on p.o. antibiotics. The plan is acceptable to the patient. JULIAN Chen at bedside Plan discussed with: Patient My Orders Orders - GARLAND GARRIDO MD Procedure Category Date Status Time Fluconazole PHA 07/06/25 In Process 200mg/100ml (Diflucan 10:00 Date of Service: Jul 06, 2025 Billing Provider: GARLAND GARRIDO MD Common Visit Codes: [id number] INP/OBS CARE(HIGH) GARLAND GARRIDO MD Jul 06, 2025 08:12
[2025-07-06] MEDS: FAMOTIDINE (10MG/ML) 2ML VL IV SCH (08:17)
--- NOTE | 2025-07-06 08:24 | DVHDS2 ---
Discharge Summary Date of Admission Jul 02, 2025 at 19:53 Date of Discharge: Jul 06, 2025 Admitting Diagnosis Generalized weakness Wounds: Paracentesis Labs/Diagnostic Data: Laboratory Results Test 07/06/25 05:13 07/05/25 05:52 07/04/25 14:45 07/04/25 05:22 POC Glucose 94 mg/dl (70-106) Creatinine 0.99 mg/dL (0.550-1.02) Glomerular Filtration Rate Calc 56 mL/min (>90) Body Fluid Source Peritoneal fluid Body Fluid pH 8.0 Body Fluid WBC (Manual) 263 CUMM (0-200) Body Fluid RBC (Manual) 10 CUMM (0-2000) Body Fluid Mononuclear Cells 84 % Body Fluid Polymorphonuclear Cells 16 % (0-25) Body Fluid Glucose 139 mg/dL (.) Body Fluid Total Protein 1.1 g/dL (.) White Blood Count 7.7 10^3/uL (4.4-10.8) Red Blood Count 4.09 10^6/uL (4.0-5.20) Hemoglobin 12.1 g/dL (12.2-16.2) Hematocrit 36.8 % (36.0-46.0) Mean Corpuscular Volume 89.9 fL (80.0-100.0) Mean Corpuscular Hemoglobin 29.6 pg (28.0-32.0) Mean Corpuscular Hemoglobin Concent 33.0 g/dL (32.0-36.0) Red Cell Distribution Width 19.1 % (11.8-14.3) Platelet Count 143 10^3/uL (140-450) Mean Platelet Volume 9.0 fL (6.9-10.8) Neutrophils (%) (Auto) 68.2 % (37.0-80.0) Lymphocytes (%) (Auto) 13.2 % (10.0-50.0) Monocytes (%) (Auto) 13.5 % (0.0-12.0) Eosinophils (%) (Auto) 4.5 % (0.0-7.0) Basophils (%) (Auto) 0.6 % (0.0-2.0) Neutrophils # (Auto) 5.3 10 ^3/uL (1.6-8.6) Lymphocytes # (Auto) 1.0 10 ^3/uL (0.4-5.4) Monocytes # (Auto) 1.0 10 ^3/uL (0-1.3) Eosinophils # (Auto) 0.3 10 ^3/uL (0-0.8) Basophils # (Auto) 0 10 ^3/uL (0-0.2) Nucleated Red Blood Cells 0.1 % Test 07/03/25 13:10 07/02/25 20:40 07/02/25 16:55 07/02/25 16:32 Sodium Level 143 mmol/L (136-145) Potassium Level 4.5 mmol/L (3.5-5.1) Chloride Level 112 mmol/L (98-107) Carbon Dioxide Level 23 mmol/L (20-31) Anion Gap 8 (5-15) Blood Urea Nitrogen 17 mg/dL (9-23) BUN/Creatinine Ratio 14.7 (10.0-20.0) Serum Glucose 157 mg/dL (74-106) Calcium Level 7.1 mg/dL (8.7-10.4) Total Bilirubin 0.7 mg/dL (0.2-1.0) Aspartate Amino Transferase (AST) 57 U/L (13-40) Alanine Aminotransferase (ALT) 30 U/L (7-40) Alkaline Phosphatase 344 U/L (46-116) Total Protein 5.5 g/dL (5.7-8.2) Albumin 2.6 g/dL (3.2-4.8) Prothrombin Time 12.2 sec (9.3-11.8) Prothrombin Time INR 1.17 (0.9-1.15) Activated Partial Thromboplast Time 26.8 SEC (24.5-34.5) Lactic Acid Level 1.4 mmol/L (0.4-2.0) Urine Color Yellow (Yellow) Urine Clarity Clear (Clear) Urine pH 5.5 (5.0-9.0) Urine Specific [place] 1.019 (1.001-1.035) Urine Protein Trace (Negative) Urine Ketones Negative (Negative) Urine Blood Negative /uL (Negative) Urine Nitrite Negative (Negative) Urine Bilirubin Negative (Negative) Urine Urobilinogen Normal mg/dL (Negative) Urine Leukocyte Esterase 3+ /uL (Negative) Urine RBC 4 /hpf (0 - 4) Urine Microscopic WBC 51 /HPF (0-5) Urine Squamous Epithelial Cells Few /hpf (<5) Urine Bacteria None seen /hpf (None Seen) Urine Glucose Normal mg/dL (Normal) Test 07/02/25 13:04 Lipase 40 U/L (12-53) Other Laboratory Tests 07/05/25 05:52 07/04/25 05:22 07/03/25 13:10 Brief Hx & Hospital Course: 85-year-old female on hospice went to [facility] for abdominal distention. She will be discharged without paracentesis and came to [facility] for admission history of cirrhosis with a ascites 4 L of fluid by by the radiologist in [facility] patient had acute hypotension cardiology consult was done patient has declined any cardiac intervention including medications for blood pressure support found to have UTI blood cultures negative treated with the Levaquin also had a yeast treated with the Diflucan patient will be discharged home on Levaquin p.o. and Diflucan p.o. patient is DNR status and and on hospice. She will be discharged back to [facility] on hospice under the care of Dr. Mikaela Rico. Consults/Reason for consult Interventional radiologist Operations or Procedures Paracentesis Condition at Discharge: Fair Final Diagnosis/Problems List Acute abdominal pain secondary to ascites Moderate ascites: Status post drainage of 4 L of fluid by the Radiologist, fluid culture results pending Cirrhosis of liver Acute hypotension cardiology consult appreciated the patient declines any cardiac intervention including medications for blood pressure support UTI: Blood Cultures negative, urine cultures growing yeast: Treated with Levaquin and Diflucan IV, converted to p.o. Patient is DNR Discharge Disposition: Jail Facility Discharge Instruct/Medications Diet: Regular Activity: Light activity Follow Up/Referral: Follow up with your skilled nursing Medications: see list 39 (Time taken for discharge summary 39 minutes) Discharge Statement: "Patient was advised to return to the ER or call 911 if any headaches, dizziness, shortness of breath, chest pain, abdominal pain, bleeding, fevers, or worsening of medical condition. Patient was counseled about treatment plan, medications, possible side effects, patientverbalized understanding. All questions were answered to the best of my ability. This discharge took greater then 30 minutes in planning, reviewing documentation, counseling the patient, and discussing with other team members." ASSESSMENT ASSESSMENT Hospital Course Marginally improved Assessment Acute abdominal pain secondary to ascites Moderate ascites: Status post drainage of 4 L of fluid by the Radiologist, fluid culture results pending Cirrhosis of liver Acute hypotension cardiology consult appreciated the patient declines any cardiac intervention including medications for blood pressure support UTI: Blood Cultures negative, urine cultures growing yeast: Treated with Levaquin and Diflucan IV, converted to p.o. Patient is DNR Date of Service: Jul 06, 2025 Billing Provider: GARLAND GARRIDO MD Common Visit Codes: 81734-TOP/OBS DISCH DAY >30min GARLAND GARRIDO MD Jul 06, 2025 08:24
[2025-07-06] MEDS ORDERED: LEVO500T91 PO (09:30)
[2025-07-06] MEDS ORDERED: FLUC200T PO (09:31)
[2025-07-06] MEDS ORDERED: FLUCONAZOLE 200MG/100ML 100 ML IV SCH (10:00)
[2025-07-06] MEDS: levoFLOXacin 500 MG TAB PO SCH (10:09)
[2025-07-06] MEDS: FLUCONAZOLE 100 MG TAB PO SCH (10:09)
== END 2025-07-06 13:36 | disposition hospice, home (50) | DRG 433 ==
LOC: ER 11:29 → EDBD 11:29 → OVERFLOW 19:53 → TELE-CENTR 07-03 17:39
PROVIDERS: ADMIT Family Medicine; ATTEND Family Medicine
PROC: 0W9G3ZZ Drainage of Peritoneal Cavity, Percutaneous Approach (ICD-10-PCS; principal; 2025-07-04)
DX: K74.60 Unspecified cirrhosis of liver (principal); N13.6 Pyonephrosis; K72.90 Hepatic failure, unspecified without coma; Z51.5 Encounter for palliative care; Z66 Do not resuscitate; J44.9 Chronic obstructive pulmonary disease, unspecified; I12.9 Hypertensive chronic kidney disease with stage 1 through stage 4 chronic kidney disease, or unspecified chronic kidney disease; E11.22 Type 2 diabetes mellitus with diabetic chronic kidney disease; N18.9 Chronic kidney disease, unspecified; R18.8 Other ascites; I95.9 Hypotension, unspecified; E78.5 Hyperlipidemia, unspecified; N28.89 Other specified disorders of kidney and ureter; Z88.0 Allergy status to penicillin; Z88.6 Allergy status to analgesic agent; Z90.710 Acquired absence of both cervix and uterus
CPT/HCPCS: 36415; 49083; 74177; 76705; 76942; 80053; 81001; 82565; 82962; 83605; 83690; 83986; 85025; 85610; 85730; 87040; 87071; 87086; 87088; 87205; 88341; 89051; 93005; 96365; 96375; 99291; 99292; G0378; J1450; J2405; J3490